=== PATIENT | male | born 1930 ===

== ENCOUNTER 2018-08-24 15:34 | Emergency (ER) | payer OTHER ==
[~2018-08-24] VITALS: Ht 167.6 cm; Wt 72.6 kg
[~2018-08-24 15:34] MED LIST: ALPRAZOLAM0.5 MG PO; AMIODARONE HCL200 MG NGT; ASPIR 8181 MG; ATENOLOL100 MG PO; ATORVASTATIN CA20 MG; BACTRIM 400-801 TAB PO; BISOPROLOL FUMAR5 MG; BISOPROLOL-HCTZ1 TA2; BUMEX PO; CARBIDOPA-LEVO1 EAC3; CEFADROXIL500 MG PO; COUMADIN2 MG PO; COUMADIN2.5 MG; DIGOXIN125 MCG; ESCITALOPRAM OX10 MG; LANOXIN125 MCG PO; LASIX20 MG; LORATADINE10 MG PO; OMEPRAZOLE20 MG; PAXIL20 MG; PROSCAR5 MG; PROSCAR5 MG PO; SINEMET 25-1001 EACH PO; TAMS0.4C PO; TOPROL XL50 M1 PO; XANAX XR0.5 MG PO
[2018-08-24] MEDS ORDERED: CEPHALEXIN500 MG PO (22:02)
== END 2018-08-24 22:33 | disposition home or self-care (01) ==
LOC: ER 15:34
DX: S00.83XA Contusion of other part of head, initial encounter (principal); W18.39XA Other fall on same level, initial encounter; Y93.89 Activity, other specified; Y92.89 Other specified places as the place of occurrence of the external cause; Y99.8 Other external cause status; R41.82 Altered mental status, unspecified